=== PATIENT | female | born 1970 | race Caucasian/White ===

== ENCOUNTER → 2017-08-16 | Outpatient (CLI) | payer OTHER ==
[~2017-08-16] MED LIST: AMLO-96 PO; ATOR20TA65 PO; ESCI10TA8 PO; HYDR-2963 PO; HYDR-2966 PO; PNEI IM; POTA-23 PO; SIMV-54 PO; TRAZ-156 PO; VALS160T2 PO
[2017-08-16 16:26] LABS: PLATELET COUNT, AUTOMATED 231 K/uL (150-450)
[2017-08-16 16:49] LABS: LDL CHOLESTEROL 91 mg/dl
== END ==
LOC: LAB 16:04
PROVIDERS: ATTEND Nurse Practitioner Family
DX: I10 Essential (primary) hypertension (principal); E78.5 Hyperlipidemia, unspecified
CPT/HCPCS: 36415; 82040; 82247; 82310; 82374; 82435; 82465; 82565; 82947; 83718; 84075; 84132; 84155; 84295; 84443; 84450; 84460; 84478; 84520; 85025